=== PATIENT | female | born 1975 | race Caucasian/White ===

== ENCOUNTER 2018-07-28 10:51 | Emergency (ER) | payer BC ==
[2018-07-28] MEDS ORDERED: Sodium Chloride 0.9% 2.5 ML Syringe FLUSH PRN (11:07)
[2018-07-28] MEDS ORDERED: Sodium Chloride 0.9% 10 ML Syringe FLUSH PRN (11:07)
--- NOTE | 2018-07-28 11:28 | EDM.PDOC ---
ED HPI GENERAL MEDICAL PROBLEM - General Chief Complaint: Abdominal Pain Stated Complaint: ABD PAIN Time Seen by Provider: 07/28/18 11:23 Source of Information: Reports: Patient History Limitations: Reports: No Limitations - History of Present Illness INITIAL COMMENTS - FREE TEXT/NARRATIVE: HISTORY AND PHYSICAL: History of present illness: Patient is a 42-year-old female here with complaint of abdominal pain. She states she has a small umbilical hernia, she was "messing with it" this morning and states that since then she is having a severe pain in the area that radiates down her abdomen. She states right now lying down it is not as severe and she is just having a little bit of discomfort. She denies fevers, chills, nausea, vomiting, diarrhea, dysuria, hematuria. She states she had a normal non- bloody stool this morning. She reports history of stage 2 polycystic kidney disease. Denies back pain. Review of systems: As per history of present illness and below otherwise all systems reviewed and negative. Past medical history: As per history of present illness and as reviewed below otherwise noncontributory. Surgical history: As per history of present illness and as reviewed below otherwise noncontributory. Social history: No reported history of drug or alcohol abuse. Family history: As per history of present illness and as reviewed below otherwise noncontributory. Physical exam: General: Patient sitting comfortably in no acute distress and nontoxic appearing HEENT: Atraumatic, normocephalic, pupils reactive, negative for conjunctival pallor or scleral icterus, mucous membranes moist, throat clear, neck supple, nontender, trachea midline. No meningeal signs. Lungs: Clear to auscultation, breath sounds equal bilaterally, chest nontender. Heart: S1S2, regular, negative for clicks, rubs, or overt murmur. Abdomen: There is a small defect felt just above the umbilicus without any tenderness to palpation. Soft, nondistended. Negative for masses or hepatosplenomegaly. Negative for costovertebral tenderness. Pelvis: Stable nontender. Genitourinary: Deferred. Rectal: Deferred. Extremities: Atraumatic, negative for cords or calf pain. Neurovascular unremarkable. Neuro: Awake, alert, oriented. Cranial nerves II through XII unremarkable. Cerebellum unremarkable. Motor and sensory unremarkable throughout. Exam nonfocal. Notes: Patient reports feeling better and declined CT of the abdomen. Labs are unremarkable. Diagnostics: CBC, CMP, lipase, UA Patient declined CT Therapeutics: None Prescriptions: None Impression: Abdominal pain Plan: 1. Follow up with primary care provider 2. Return to ED as needed as discussed Definitive disposition and diagnosis as appropriate pending reevaluation and review of above. Middle Abdomen Pain Score (Numeric/FACES): 5 - Related Data Allergies Allergy/AdvReac Type Severity Reaction Status Date / Time cephalexin [Cephalexin] Allergy Rash Verified 07/28/18 11:09 codeine Allergy Rash Verified 07/28/18 11:09 Penicillins Allergy Rash Verified 07/28/18 11:09 Home Meds: Home Meds Lisinopril 40 mg PO DAILY 02/22/15 [History] Past Medical History - Past Health History Medical/Surgical History: Denies Medical/Surgical History Cardiovascular History: Reports: Hypertension Other Genitourinary History: polycystic kidney disease Social & Family History - Family History Family Medical History: Noncontributory - Tobacco Use Smoking Status *Q: Never Smoker - Recreational Drug Use Recreational Drug Use: No ED ROS GENERAL - Review of Systems Review Of Systems: ROS reveals no pertinent complaints other than HPI. ED EXAM, GI/ABD - Physical Exam Exam: See Below (see dictation) Course - Vital Signs Last Recorded V/S: Last Vital Signs Temp 97.5 F 07/28/18 11:07 Pulse 77 07/28/18 11:07 Resp 18 07/28/18 11:07 BP 113/73 07/28/18 11:07 Pulse Ox 97 07/28/18 11:07 - Orders/Labs/Meds Orders: Active Orders 24 hr Category Date Time Status Abdomen Pelvis wo Cont [CT] Stat Exams 07/28/18 12:17 Ordered Sodium Chloride 0.9% [Saline Flush] Med 07/28/18 11:07 Active 10 ml FLUSH ASDIRECTED PRN Sodium Chloride 0.9% [Saline Flush] Med 07/28/18 11:07 Active 2.5 ml FLUSH ASDIRECTED PRN Saline Lock Insert [OM.PC] Stat Oth 07/28/18 11:07 Ordered Medication Orders Sodium Chloride (Saline Flush) 10 ml FLUSH ASDIRECTED PRN PRN Reason: Keep Vein Open Sodium Chloride (Saline Flush) 2.5 ml FLUSH ASDIRECTED PRN PRN Reason: Keep Vein Open Labs: Laboratory Tests 07/28/18 07/28/18 07/28/18 Range/Units 11:19 11:19 11:19 WBC 7.82 (4.0-11.0) K/uL RBC 4.41 (4.30-5.90) M/uL Hgb 13.9 (12.0-16.0) g/dL Hct 41.7 (36.0-46.0) % MCV 94.6 (80.0-98.0) fL MCH 31.5 (27.0-32.0) pg MCHC 33.3 (31.0-37.0) g/dL RDW Std Deviation 42.9 (28.0-62.0) fl RDW Coeff of Brenda 12 (11.0-15.0) % Plt Count 192 (150-400) K/uL MPV 11.60 (7.40-12.00) fL Neut % (Auto) 75.7 (48.0-80.0) % Lymph % (Auto) 17.0 (16.0-40.0) % [place] % (Auto) 5.6 (0.0-15.0) % Eos % (Auto) 1.2 (0.0-7.0) % Baso % (Auto) 0.5 (0.0-1.5) % Neut # (Auto) 5.9 H (1.4-5.7) K/uL Lymph # (Auto) 1.3 (0.6-2.4) K/uL [place] # (Auto) 0.4 (0.0-0.8) K/uL Eos # (Auto) 0.1 (0.0-0.7) K/uL Baso # (Auto) 0.0 (0.0-0.1) K/uL Nucleated RBC % 0.0 /100WBC Nucleated RBCs # 0 K/uL Sodium 134 L (136-145) mmol/L Potassium 3.9 (3.5-5.1) mmol/L Chloride 102 (98-107) mmol/L Carbon Dioxide 24.5 (21.0-32.0) mmol/L BUN 17 (7.0-18.0) mg/dL Creatinine 1.1 H (0.6-1.0) mg/dL Est Cr Clr Drug Dosing 64.79 mL/min Estimated GFR (MDRD) 54.5 ml/min Glucose 102 (74-106) mg/dL Calcium 8.8 (8.5-10.1) mg/dL Total Bilirubin 0.5 (0.2-1.0) mg/dL AST 19 (15-37) IU/L ALT 14 (14-63) IU/L Alkaline Phosphatase 64 (46-116) U/L Total Protein 7.4 (6.4-8.2) g/dL Albumin 3.5 (3.4-5.0) g/dL Globulin 3.9 (2.6-4.0) g/dL Albumin/Globulin Ratio 0.9 (0.9-1.6) Lipase 271 (73-393) U/L Urine Color YELLOW Urine Appearance CLEAR Urine pH 6.0 (5.0-8.0) Ur Specific [place] 1.015 (1.001-1.035) Urine Protein NEGATIVE (NEGATIVE) mg/dL Urine Glucose (UA) NEGATIVE (NEGATIVE) mg/dL Urine Ketones NEGATIVE (NEGATIVE) mg/dL Urine Occult Blood TRACE-LYSED H (NEGATIVE) Urine Nitrite NEGATIVE (NEGATIVE) Urine Bilirubin NEGATIVE (NEGATIVE) Urine Urobilinogen 0.2 (<2.0) EU/dL Ur Leukocyte Esterase NEGATIVE (NEGATIVE) Urine RBC 0-1 (0-2/HPF) Urine WBC 0-1 (0-5/HPF) Ur Epithelial Cells FEW (NONE-FEW) Urine Bacteria FEW (NEGATIVE) Meds: Medications Generic Name Dose Route Start Last Admin Trade Name Freq PRN Reason Stop Dose Admin Sodium Chloride 10 ml 07/28/18 11:07 Saline Flush FLUSH ASDIRECTED PRN Keep Vein Open Sodium Chloride 2.5 ml 07/28/18 11:07 Saline Flush FLUSH ASDIRECTED PRN Keep Vein Open Departure - Departure Time of Disposition: 12:48 Disposition: Home, Self-Care 01 Condition: Good Clinical Impression: Abdominal pain Qualifiers: Abdominal location: periumbilical Qualified Code(s): R10.33 - Periumbilical pain - Discharge Information Referrals: Zane Nath MD [Primary Care Provider] - Forms: ED Department Discharge Additional Instructions: The following information is given to patients seen in the emergency department who are being discharged to home. This information is to outline your options for follow-up care. We provide all patients seen in our emergency department with a follow-up referral. The need for follow-up, as well as the timing and circumstances, are variable depending upon the specifics of your emergency department visit. If you don't have a primary care physician on staff, we will provide you with a referral. We always advise you to contact your personal physician following an emergency department visit to inform them of the circumstance of the visit and for follow-up with them and/or the need for any referrals to a consulting specialist. The emergency department will also refer you to a specialist when appropriate. This referral assures that you have the opportunity for follow-up care with a specialist. All of these measure are taken in an effort to provide you with optimal care, which includes your follow-up. Under all circumstances we always encourage you to contact your private physician who remains a resource for coordinating your care. When calling for follow-up care, please make the office aware that this follow-up is from your recent emergency room visit. If for any reason you are refused follow-up, please contact the [facility] Emergency Department at and asked to speak to the [place] [address] 1. Follow up with primary care provider 2. Return to ED as needed as discussed - My Orders Last 24 Hours: My Active Orders 07/28/18 11:07 Sodium Chloride 0.9% [Saline Flush] 10 ml FLUSH ASDIRECTED PRN Sodium Chloride 0.9% [Saline Flush] 2.5 ml FLUSH ASDIRECTED PRN Saline Lock Insert [OM.PC] Stat 07/28/18 12:17 Abdomen Pelvis wo Cont [CT] Stat - Assessment/Plan Last 24 Hours: My Active Orders 07/28/18 11:07 Sodium Chloride 0.9% [Saline Flush] 10 ml FLUSH ASDIRECTED PRN Sodium Chloride 0.9% [Saline Flush] 2.5 ml FLUSH ASDIRECTED PRN Saline Lock Insert [OM.PC] Stat 07/28/18 12:17 Abdomen Pelvis wo Cont [CT] Stat
[2018-07-28 14:54] VITALS: BP 133/89
== END 2018-07-28 13:00 | disposition home or self-care (01) ==
LOC: MW.ED 10:51
DX: R10.33 Periumbilical pain (principal); I10 Essential (primary) hypertension; Z88.1 Allergy status to other antibiotic agents; Z88.0 Allergy status to penicillin; Z88.5 Allergy status to narcotic agent; Z79.899 Other long term (current) drug therapy
CPT/HCPCS: 36415; 80053; 81001; 83690; 85025; 99283; 99284

== ENCOUNTER 2020-11-26 11:58 | Emergency (ER) | payer BC ==
--- NOTE | 2020-11-26 12:31 | EDM.PDOC ---
ED HPI GENERAL MEDICAL PROBLEM - General Chief Complaint: Abdominal Pain Stated Complaint: PAIN IN ABDOMIN Time Seen by Provider: 11/26/20 11:59 Source of Information: Reports: Patient History Limitations: Reports: No Limitations - History of Present Illness INITIAL COMMENTS - FREE TEXT/NARRATIVE: HISTORY AND PHYSICAL: History of present illness: Patient is a 45-year-old female who presents to the emergency room today with concern of umbilical hernia discomfort worsening today but has had issues with the umbilical hernia hurting off and on over the past several years. Patient states that she sees general surgeon, Dr. Ramos and was instructed to set up a surgery at any time. Patient states that she has been waiting to get surgery on it but now that she is having issues and discomfort realizes she needs to have surgery. Patient states that typically she is able to get the hernia to go in and out but states today she was not able to get up to go and so came to the emergency room. Patient denies any other symptoms or concerns. Patient denies fever, chills, chest pain, shortness of breath, or cough. Denies headache, neck stiff ness, change in vision, syncope, or near syncope. Denies nausea, vomiting, abdominal pain, diarrhea, constipation, or dysuria. Has not noted any blood in urine or stool. Patient has been eating and drinking appropriately. Review of systems: As per history of present illness and below otherwise all systems reviewed and negative. Past medical history: As per history of present illness and as reviewed below otherwise noncontribut ory. Surgical history: As per history of present illness and as reviewed below otherwise noncontributory. Social history: See social history for further information Family history: As per history of present illness and as reviewed below otherwise noncontributory. Physical exam: General: Patient is alert, oriented, and in no acute distress. Patient sitting comfortably on exam table. Vitals stable and reviewed by me. HEENT: Atraumatic, normocephalic, pupils equal and reactive bilaterally, negative for conjunctival pallor or scleral icterus, mucous membranes moist, TMs normal bilaterally, throat clear, neck supple, nontender, trachea midline. No drooling or trismus noted. No meningeal signs. No hot potato voice noted. Lungs: Clear to auscultation, breath sounds equal bilaterally, chest nontender. Heart: S1S2, regular rate and rhythm without overt murmur Abdomen: Patient does have an umbilical hernia which is approximately 3 cm x 3 cm which is easily reducible on exam and tender to palpation. Otherwise, soft, nondistended, nontender. Negative for masses or hepatosplenomegaly. Negative for costovertebral tenderness. Pelvis: Stable nontender. Genitourinary: Deferred. Rectal: Deferred. Skin: Intact, warm, dry. No lesions or rashes noted. Extremities: Atraumatic, negative for cords or calf pain. Neurovascular unremarkable. Neuro: Awake, alert, oriented. Cranial nerves II through XII unremarkable. Cerebellum unremarkable. Motor and sensory unremarkable throughout. Exam nonfocal. Notes: Patient is a 45-year-old female who presents emergency room today with concern of umbilical hernia pain and discomfort worsening today. Patient states that she has had issues with her umbilical hernia over several years and has seen Dr. Ramos, general surgery, but has been delaying getting operated on. Patient states that she has been having discomfort off-and-on of the hernia and it does pop in and out and she is able to get it to reduce. Patient states that today, she has not been able to get the bellybutton hernia to reduce and started having pain with associated nausea so came to the emergency room for further evaluation. Upon arrival to the ED, patient is vitally stable and well- appearing on exam. She does have an umbilical hernia on exam which is easily reducible on exam. She is able to sit up and stand without the umbilical hernia going back out. Strict return precautions thoroughly discussed with patient. Discussed importance for follow-up with a general surgeon. Voices understanding and is agreeable to plan of care. Denies any further questions or concerns at this time. Diagnostics: None Therapeutics: None Prescription: None Impression: Umbilical hernia discomfort, reducible Plan: 1. You can alternate ibuprofen and Tylenol as directed for pain and discomfort. 2. Follow-up with the general surgeon as discussed. Return to the ED as needed and as discussed. Definitive disposition and diagnosis as appropriate pending reevaluation and review of above. umbillical Pain Score (Numeric/FACES): 5 - Related Data Allergies Allergy/AdvReac Type Severity Reaction Status Date / Time cephalexin [Cephalexin] Allergy Rash Verified 11/26/20 12:05 codeine Allergy Rash Verified 11/26/20 12:05 Penicillins Allergy Rash Verified 11/26/20 12:05 Home Meds: Home Meds Lisinopril 40 mg PO DAILY 02/22/15 [History] Past Medical History - Past Health History Medical/Surgical History: Denies Medical/Surgical History HEENT History: Reports: None Cardiovascular History: Reports: Hypertension Respiratory History: Reports: None Gastrointestinal History: Reports: None Genitourinary History: Reports: Other (See Below) Other Genitourinary History: polycystic kidney disease [employer] History: Reports: None Musculoskeletal History: Reports: None Neurological History: Reports: None Psychiatric History: Reports: None Endocrine/Metabolic History: Reports: None Hematologic History: Reports: None Immunologic History: Reports: None Oncologic (Cancer) History: Reports: None Dermatologic History: Reports: None - Infectious Disease History Infectious Disease History: Reports: None - Past Surgical History Head Surgeries/Procedures: Reports: None HEENT Surgical History: Reports: None Cardiovascular Surgical History: Reports: None Respiratory Surgical History: Reports: None GI Surgical History: Reports: None Female Surgical History: Reports: None Endocrine Surgical History: Reports: None Neurological Surgical History: Reports: None Musculoskeletal Surgical History: Reports: None Oncologic Surgical History: Reports: None Dermatological Surgical History: Reports: None Social & Family History - Family History Family Medical History: No Pertinent Family History - Tobacco Use Tobacco Use Status *Q: Never Tobacco User Second Hand Smoke Exposure: No - Caffeine Use Caffeine Use: Reports: None - Recreational Drug Use Recreational Drug Use: No ED ROS GENERAL - Review of Systems Review Of Systems: Comprehensive ROS is negative, except as noted in HPI. ED EXAM, GENERAL - Physical Exam Exam: See Below (see dictation) Course - Vital Signs Last Recorded V/S: Last Vital Signs Temp 96.8 F L 11/26/20 12:06 Pulse 94 11/26/20 12:06 Resp 18 11/26/20 12:06 BP 140/95 H 11/26/20 12:06 Pulse Ox 98 11/26/20 12:06 Departure - Departure Time of Disposition: 12:26 Disposition: Home, Self-Care 01 Clinical Impression: Umbilical hernia Qualifiers: Obstruction and gangrene presence: without obstruction or gangrene Qualified Code(s): K42.9 - Umbilical hernia without obstruction or gangrene - Discharge Information Referrals: Lauri Lombardi MD [Primary Care Provider] - Additional Instructions: The following information is given to patients seen in the emergency department who are being discharged to home. This information is to outline your options for follow-up care. We provide all patients seen in our emergency department with a follow-up referral. The need for follow-up, as well as the timing and circumstances, are variable depending upon the specifics of your emergency department visit. If you don't have a primary care physician on staff, we will provide you with a referral. We always advise you to contact your personal physician following an emergency department visit to inform them of the circumstance of the visit and for follow-up with them and/or the need for any referrals to a consulting specialist. The emergency department will also refer you to a specialist when appropriate. This referral assures that you have the opportunity for follow-up care with a specialist. All of these measure are taken in an effort to provide you with optimal care, which includes your follow-up. Under all circumstances we always encourage you to contact your private physician who remains a resource for coordinating your care. When calling for follow-up care, please make the office aware that this follow-up is from your recent emergency room visit. If for any reason you are refused follow-up, please contact the [facility] Emergency Department at and asked to speak to the emergency department charge nurse. [facility] [address] [place], [place] [id number] [address] [address] [facility] - General Surgery Professional Building [address] [place] [address], [address] [place] [address] 1. You can alternate ibuprofen and Tylenol as directed for pain and discomfort. 2. Follow-up with a general surgeon as discussed. Return to the ED as needed and as discussed. Sepsis Event Note (ED) - Evaluation Sepsis Screening Result: No Definite Risk - Focused Exam Vital Signs: Vital Signs Temp Pulse Resp BP Pulse Ox 11/26/20 12:06 96.8 F L 94 18 140/95 H 98
[2020-11-26 15:13] VITALS: BP 131/87; PULSE 82
== END 2020-11-26 12:53 | disposition home or self-care (01) ==
LOC: MW.ED 11:58
DX: K42.9 Umbilical hernia without obstruction or gangrene (principal); I10 Essential (primary) hypertension; Z88.5 Allergy status to narcotic agent; Z88.1 Allergy status to other antibiotic agents; Z88.0 Allergy status to penicillin; Z79.899 Other long term (current) drug therapy
CPT/HCPCS: 99283

== ENCOUNTER 2020-11-28 11:18 | Day surgery (SDC) | payer BC ==
--- NOTE | 2020-11-28 09:59 | PCM.PREANE ---
Preanesthetic Assessment - Anesthesia/Transfusion/Family Hx Anesthesia History: No Prior Anesthesia Other Type of Anesthesia Reaction Comment: patient adopted, family hx unknown Transfusion History: No Prior Transfusion(s) - Review of Systems General: No Symptoms Pulmonary: No Symptoms Cardiovascular: No Symptoms Gastrointestinal: Abdominal Pain Neurological: No Symptoms - Physical Assessment NPO Status Date: 11/28/20 NPO Status Time: 00:00 Height: 5 ft 7 in Weight: 205 lb ASA Class: 2 Mental Status: Alert & Oriented x3 Airway Class: Mallampati = 2 Dentition: Reports: Normal Dentition Thyro-Mental Finger Breadths: 3 Mouth Opening Finger Breadths: 3 ROM/Head Extension: Full Lungs: Clear to Auscultation, Normal Respiratory Effort Cardiovascular: Regular Rate, Regular Rhythm - Allergies Allergies/Adverse Reactions: Allergies Allergy/AdvReac Type Severity Reaction Status Date / Time cephalexin [Cephalexin] Allergy Rash Verified 11/27/20 10:07 codeine Allergy Rash Verified 11/27/20 10:07 Penicillins Allergy Rash Verified 11/27/20 10:07 - Blood Blood Available: No - Anesthesia Plan Pre-Op Medication Ordered: Other (Scopolamine) - Acknowledgements Anesthesia Type Planned: General Anesthesia Pt an Appropriate Candidate for the Planned Anesthesia: Yes Alternatives and Risks of Anesthesia Discussed w Pt/Guardian: Yes Pt/Guardian Understands and Agrees with Anesthesia Plan: Yes PreAnesthesia Questionnaire - Past Health History Medical/Surgical History: Denies Medical/Surgical History HEENT History: Reports: Other (See Below) Other HEENT History: wears glasses/contacts Cardiovascular History: Reports: Hypertension Respiratory History: Reports: None Gastrointestinal History: Reports: None Genitourinary History: Reports: Other (See Below) Other Genitourinary History: polycystic kidney disease [employer] History: Reports: , Other (See Below) (Polycystic ovary) Musculoskeletal History: Reports: None Neurological History: Reports: None Psychiatric History: Reports: None Endocrine/Metabolic History: Reports: Obesity/BMI 30+ Hematologic History: Reports: None Immunologic History: Reports: None Oncologic (Cancer) History: Reports: None Dermatologic History: Reports: None - Infectious Disease History Infectious Disease History: Reports: None - Past Surgical History Head Surgeries/Procedures: Reports: None HEENT Surgical History: Reports: None Cardiovascular Surgical History: Reports: None Respiratory Surgical History: Reports: None GI Surgical History: Reports: None Female Surgical History: Reports: None Endocrine Surgical History: Reports: None Neurological Surgical History: Reports: None Musculoskeletal Surgical History: Reports: None Oncologic Surgical History: Reports: None Dermatological Surgical History: Reports: None - SUBSTANCE USE Tobacco Use Status *Q: Never Tobacco User Number of Drinks Per Day: 2 - HOME MEDS Home Medications: Home Meds Lisinopril 40 mg PO DAILY 02/22/15 [History] - CURRENT (IN HOUSE) MEDS Current Meds: Current Medications Albuterol (Albuterol 0.083% 2.5 Mg/3 Ml Neb Soln) 2.5 mg NEB ONETIME PRN PRN Reason: Wheezing Droperidol (Droperidol 5 Mg/2 Ml Sdv) 0.625 mg IVPUSH ONETIME PRN PRN Reason: Nausea/Vomiting Fentanyl (Fentanyl 100 Mcg/2 Ml Sdv) 50 mcg IVPUSH Q5M PRN PRN Reason: Pain (mild 1-3) Hydromorphone HCl (Hydromorphone 2 Mg/Ml Syringe) 1 mg IVPUSH Q10M PRN PRN Reason: Pain (moderate 4-6) Lactated Ringer's (Ringers, Lactated) 1,000 mls @ 125 mls/hr IV ASDIRECTED INOCENCIO Metoclopramide HCl (Metoclopramide 10 Mg/2 Ml Sdv) 10 mg IVPUSH ONETIME PRN PRN Reason: Nausea/Vomiting Morphine Sulfate (Morphine 2 Mg/Ml Syringe) 2 mg IVPUSH Q10M PRN PRN Reason: Pain (severe 7-10) Naloxone HCl (Naloxone 0.4 Mg/Ml Syringe) 0.1 mg IVPUSH ASDIRECTED PRN PRN Reason: Respiratory Depression Ondansetron HCl (Ondansetron 4 Mg/2 Ml Sdv) 4 mg IVPUSH ONETIME PRN PRN Reason: Nausea/Vomiting Sodium Chloride (Sodium Chloride 0.9% 10 Ml Sdv) 10 ml IV ASDIRECTED PRN PRN Reason: IV Use Sodium Chloride (Sodium Chloride 0.9% 10 Ml Syringe) 10 ml FLUSH ASDIRECTED PRN PRN Reason: Keep Vein Open Sodium Chloride (Sodium Chloride 0.9% 2.5 Ml Syringe) 2.5 ml FLUSH ASDIRECTED PRN PRN Reason: Keep Vein Open Discontinued Medications Clindamycin Phosphate 600 mg/ (Premix) 50 mls @ 100 mls/hr IV ONETIME ONE Stop: 11/28/20 06:29 Scopolamine (Scopolamine 1.5 Mg Transdermal Patch) Confirm Administered Dose 1.5 mg .ROUTE .[facility] ONE Stop: 11/28/20 09:48
[~2020-11-28 11:18] MED LIST: Albuterol 0.083% 2.5 MG/3 ML Neb Soln NEB PRN; Bupivacaine 0.5% 30 ML SDV ONE; Clindamycin Phosphate in D5W 600 MG in Premix Bag 1 BAG IV ONE; HYDROmorphone 2 MG/ML Syringe IVPUSH PRN; Lactated Ringers 1,000 ML IV SCH; Lidocaine 2% 5 ML SDV ONE; Metoclopramide 10 MG/2 ML SDV IVPUSH PRN; Morphine 2 MG/ML SYRINGE IVPUSH PRN; Naloxone 0.4 MG/ML Syringe IVPUSH PRN; Octyl 2-Cyanoacrylate 1 Tube ONE; Ondansetron 4 MG/2 ML SDV IVPUSH PRN; Ondansetron 4 MG/2 ML SDV ONE; Scopolamine 1.5 MG Transdermal Patch ONE; Sodium Chloride 0.9% 10 ML SDV IV PRN; Sodium Chloride 0.9% 10 ML Syringe FLUSH PRN; Sodium Chloride 0.9% 2.5 ML Syringe FLUSH PRN; fentaNYL 100 MCG/2 ML SDV IVPUSH PRN; propofoL 100 ML ONE
[2020-11-28] MEDS ORDERED: Dexmedetomidine 200 MCG/2 ML SDV ONE (11:43)
[2020-11-28] MEDS ORDERED: fentaNYL 100 MCG/2 ML SDV ONE (11:55)
[2020-11-28] MEDS ORDERED: Clindamycin Phosphate in D5W 50 ML ONE (11:56)
[2020-11-28] MEDS ORDERED: Dexamethasone 4 MG/ML 5 ML MDV ONE (12:10)
--- NOTE | 2020-11-28 12:39 | PCM.POSTAN ---
POST ANESTHESIA ASSESSMENT - MENTAL STATUS Mental Status: Alert, Oriented - VITAL SIGNS Vital Signs: Last Vital Signs Temp 99.0 F 11/28/20 12:32 Pulse 76 11/28/20 12:32 Resp 12 11/28/20 12:32 BP 100/55 L 11/28/20 12:32 Pulse Ox 96 11/28/20 12:32 - RESPIRATORY Respiratory Status: Respiratory Rate WNL, Airway Patent, O2 Saturation Stable - CARDIOVASCULAR CV Status: Pulse Rate WNL, Blood Pressure Stable - GASTROINTESTINAL GI Status: No Symptoms - POST OP HYDRATION Hydration Status: Adequate & Stable
--- NOTE | 2020-11-28 12:39 | PCM48HPAN ---
Post Anesthesia Note - EVALUATION WITHIN 48HRS OF ANESTHETIC Vital Signs in Normal Range: Yes Patient Participated in Evaluation: Yes Respiratory Function Stable: Yes Airway Patent: Yes Cardiovascular Function Stable: Yes Hydration Status Stable: Yes Pain Control Satisfactory: Yes Nausea and Vomiting Control Satisfactory: Yes Mental Status Recovered: Yes Vital Signs: Last Vital Signs Temp 99.0 F 11/28/20 12:32 Pulse 76 11/28/20 12:32 Resp 12 11/28/20 12:32 BP 100/55 L 11/28/20 12:32 Pulse Ox 96 11/28/20 12:32
--- NOTE | 2020-11-28 12:51 | PCM.OPNOTE ---
- General Post-Op/Procedure Note Date of Surgery/Procedure: 11/28/20 Operative Procedure(s): Umbilical hernia repair Findings: Umbilical hernia 8mm fascial defect Pre Op Diagnosis: Umbilical hernia Post-Op Diagnosis: same Anesthesia Technique: General LMA, Local Primary Surgeon: Cat Angel Condition: Good
[2020-11-28 14:14] VITALS: BP 109/72; PULSE 48
--- NOTE | 2020-11-28 15:33 | OR ---
SURGEON: CAT ANGEL MD DATE OF PROCEDURE: 11/28/2020 PREOPERATIVE DIAGNOSIS: Umbilical hernia. POSTOPERATIVE DIAGNOSIS: Umbilical hernia. PROCEDURE PERFORMED: Umbilical hernia repair. PRIMARY SURGEON: Cat Angel MD ANESTHESIA: General LMA, local. FLUIDS: 1500 mL of crystalloid. ESTIMATED BLOOD LOSS: 5 mL. FINDINGS: 8 mm fascial defect just to the left of the umbilical stalk. Hernia sac contained preperitoneal fat. COMPLICATIONS: None. INDICATIONS: The patient is a 45-year-old female who for the past five years has noticed an umbilical hernia. In the last several months, it has become more symptomatic. Two days ago, she presented to the emergency room with a nonreducible hernia. They were able to reduce it in the emergency room, however, the patient would now like to have it repaired. I explained the procedure, expected perioperative course, and the risks. She verbalized understanding and wishes to proceed. PROCEDURE IN DETAIL: The patient was brought in to the OR and placed on the OR table in supine position. A time-out was completed verifying the patient's name, age, date of , allergies, and procedure to be performed. General LMA anesthesia was induced. The abdomen was prepped and draped in usual standard fashion. The patient had a small reducible hernia just left and inferior to the umbilical stalk. I anesthetized around the umbilicus with 0.5% Marcaine plain. A 15- blade was then used to make an incision from the 3 o'clock to the 6 o'clock position along the inferior umbilical fold. Cautery was used to dissect down to the level of subcutaneous fat. Upon entering this area, I noted that I had gotten into the hernia sac. A small amount of fat was noted. I then grasped the hernia sac with a hemostat and dissected around it using both blunt dissection and sharp dissection with the Metzenbaum scissors. I cleared away the hernia sac from the surrounding subcutaneous fat down to the level of the fascia. The hernia sac was wispy and thin. I was able to excise this away from the fascia. It was passed off the field. The hernia sac appeared to contain preperitoneal fat. I was able to easily reduce this back into the abdomen. Then, using a hemostat, I gently cleared away the underlying fascia to allow placement of my sutures. The fascial defect measured 8 mm in size. Given how small it was, the decision was made to repair this primarily. I closed the incision with interrupted 0 Ethibond sutures. Hemostasis was achieved in the wound using electrocautery. I then used interrupted 3-0 Vicryl sutures to bring together the subcutaneous fat. The skin was then closed with a running 4-0 Monocryl suture. Dermabond and sterile dressings were applied. The patient tolerated the procedure well. All counts were complete and correct at the end of the case. The patient was extubated and taken to PACU in stable condition. KANIKA DAMON /[id number]
== END 2020-11-28 13:57 | disposition home or self-care (01) ==
LOC: MW.SDS 11:18
PROVIDERS: ATTEND Surgery
DX: K42.9 Umbilical hernia without obstruction or gangrene (principal); I10 Essential (primary) hypertension; E66.9 Obesity, unspecified; Z88.8 Allergy status to other drugs, medicaments and biological substances; Z88.0 Allergy status to penicillin; Z88.2 Allergy status to sulfonamides; Z79.899 Other long term (current) drug therapy; Z88.5 Allergy status to narcotic agent; Z68.32 Body mass index [BMI] 32.0-32.9, adult
CPT/HCPCS: 49585; 81025; A9270; J1100; J2405; J2704; J3010; J3490

== ENCOUNTER 2021-01-03 07:00 | Day surgery (SDC) | payer BC ==
[~2021-01-03 07:00] MED LIST changes: -Albuterol 0.083% 2.5 MG/3 ML Neb Soln NEB PRN; -Bupivacaine 0.5% 30 ML SDV ONE; +Clindamycin Phosphate in D5W 50 ML ONE; -HYDROmorphone 2 MG/ML Syringe IVPUSH PRN; -Lidocaine 2% 5 ML SDV ONE; -Metoclopramide 10 MG/2 ML SDV IVPUSH PRN; -Morphine 2 MG/ML SYRINGE IVPUSH PRN; -Naloxone 0.4 MG/ML Syringe IVPUSH PRN; -Octyl 2-Cyanoacrylate 1 Tube ONE; -Ondansetron 4 MG/2 ML SDV IVPUSH PRN; -Ondansetron 4 MG/2 ML SDV ONE; -Scopolamine 1.5 MG Transdermal Patch ONE; -fentaNYL 100 MCG/2 ML SDV IVPUSH PRN; -propofoL 100 ML ONE
[2021-01-03] MEDS ORDERED: Scopolamine 1.5 MG Transdermal Patch ONE (07:04)
[2021-01-03] MEDS ORDERED: Midazolam 1 MG/ML 2 ML SDV ONE (07:06)
[2021-01-03] MEDS ORDERED: Albuterol 0.083% 2.5 MG/3 ML Neb Soln NEB PRN (07:19)
[2021-01-03] MEDS ORDERED: fentaNYL 100 MCG/2 ML SDV IVPUSH PRN (07:19)
[2021-01-03] MEDS ORDERED: Naloxone 0.4 MG/ML Syringe IVPUSH PRN (07:19)
[2021-01-03] MEDS ORDERED: Ondansetron 4 MG/2 ML SDV IVPUSH PRN (07:19)
[2021-01-03] MEDS ORDERED: Metoclopramide 10 MG/2 ML SDV IVPUSH PRN (07:19)
[2021-01-03] MEDS ORDERED: Morphine 10 MG/ML Syringe IVPUSH PRN (07:19)
[2021-01-03] MEDS ORDERED: HYDROmorphone 1 MG/ML Syringe IVPUSH PRN (07:19)
--- NOTE | 2021-01-03 07:33 | PCM.PREANE ---
Preanesthetic Assessment - Anesthesia/Transfusion/Family Hx Anesthesia History: Prior Anesthesia Without Reaction Other Type of Anesthesia Reaction Comment: pt adopted, family hx unknown Transfusion History: No Prior Transfusion(s) - Review of Systems General: No Symptoms Pulmonary: No Symptoms Cardiovascular: No Symptoms Gastrointestinal: Abdominal Pain Neurological: No Symptoms Other: Reports: None - Physical Assessment NPO Status Date: 01/03/21 NPO Status Time: 00:00 Vital Signs: Last Vital Signs Temp 97.3 F 01/03/21 07:19 Pulse 76 01/03/21 07:19 Resp 16 01/03/21 07:19 BP 129/86 01/03/21 07:19 Pulse Ox 100 01/03/21 07:19 Height: 5 ft 7 in Weight: 201 lb ASA Class: 2 Mental Status: Alert & Oriented x3 Airway Class: Mallampati = 2 Dentition: Reports: Normal Dentition Thyro-Mental Finger Breadths: 3 Mouth Opening Finger Breadths: 3 ROM/Head Extension: Full Lungs: Clear to Auscultation, Normal Respiratory Effort Cardiovascular: Regular Rate, Regular Rhythm - Allergies Allergies/Adverse Reactions: Allergies Allergy/AdvReac Type Severity Reaction Status Date / Time cephalexin [Cephalexin] Allergy Rash Verified 01/02/21 08:03 codeine Allergy Rash Verified 01/02/21 08:03 Penicillins Allergy Rash Verified 01/02/21 08:03 - Acknowledgements Anesthesia Type Planned: General Anesthesia Pt an Appropriate Candidate for the Planned Anesthesia: Yes Alternatives and Risks of Anesthesia Discussed w Pt/Guardian: Yes Pt/Guardian Understands and Agrees with Anesthesia Plan: Yes PreAnesthesia Questionnaire - Past Health History Medical/Surgical History: Denies Medical/Surgical History HEENT History: Reports: Other (See Below) Other HEENT History: wears glasses/contacts Cardiovascular History: Reports: Hypertension Respiratory History: Reports: None Gastrointestinal History: Reports: None Genitourinary History: Reports: Other (See Below) Other Genitourinary History: polycystic kidney disease LINE [employer]TE[employer]NCE History: Reports: Musculoskeletal History: Reports: None Neurological History: Reports: None Psychiatric History: Reports: None Endocrine/Metabolic History: Reports: Obesity/BMI 30+ Hematologic History: Reports: None Immunologic History: Reports: None Oncologic (Cancer) History: Reports: None Dermatologic History: Reports: None - Infectious Disease History Infectious Disease History: Reports: None - Past Surgical History Head Surgeries/Procedures: Reports: None HEENT Surgical History: Reports: None Cardiovascular Surgical History: Reports: None Respiratory Surgical History: Reports: None GI Surgical History: Reports: Hernia, Abdominal Other GI Surgeries/Procedures: umbilical hernia repair on 11/28/20 Female Surgical History: Reports: None Endocrine Surgical History: Reports: None Neurological Surgical History: Reports: None Musculoskeletal Surgical History: Reports: None Oncologic Surgical History: Reports: None Dermatological Surgical History: Reports: None - SUBSTANCE USE Tobacco Use Status *Q: Never Tobacco User Number of Drinks Per Day: 2 Recreational Drug Use History: No - HOME MEDS Home Medications: Home Meds Lisinopril 40 mg PO DAILY 02/22/15 [History] - CURRENT (IN HOUSE) MEDS Current Meds: Current Medications Albuterol (Albuterol 0.083% 2.5 Mg/3 Ml Neb Soln) 2.5 mg NEB ONETIME PRN PRN Reason: Wheezing Droperidol (Droperidol 5 Mg/2 Ml Sdv) 0.625 mg IVPUSH ONETIME PRN PRN Reason: Nausea/Vomiting Fentanyl (Fentanyl 100 Mcg/2 Ml Sdv) 50 mcg IVPUSH Q5M PRN PRN Reason: Pain (mild 1-3) Hydromorphone HCl (Hydromorphone 1 Mg/Ml Syringe) 1 mg IVPUSH Q10M PRN PRN Reason: Pain (moderate 4-6) Lactated Ringer's (Ringers, Lactated) 1,000 mls @ 125 mls/hr IV ASDIRECTED INOCENCIO Last Admin: 01/03/21 07:21 Dose: 125 mls/hr Documented by: Metoclopramide HCl (Metoclopramide 10 Mg/2 Ml Sdv) 10 mg IVPUSH ONETIME PRN PRN Reason: Nausea/Vomiting Morphine Sulfate (Morphine 10 Mg/Ml Syringe) 2 mg IVPUSH Q10M PRN PRN Reason: Pain (severe 7-10) Naloxone HCl (Naloxone 0.4 Mg/Ml Syringe) 0.1 mg IVPUSH ASDIRECTED PRN PRN Reason: Respiratory Depression Ondansetron HCl (Ondansetron 4 Mg/2 Ml Sdv) 4 mg IVPUSH ONETIME PRN PRN Reason: Nausea/Vomiting Sodium Chloride (Sodium Chloride 0.9% 10 Ml Sdv) 10 ml IV ASDIRECTED PRN PRN Reason: IV Use Sodium Chloride (Sodium Chloride 0.9% 10 Ml Syringe) 10 ml FLUSH ASDIRECTED PRN PRN Reason: Keep Vein Open Sodium Chloride (Sodium Chloride 0.9% 2.5 Ml Syringe) 2.5 ml FLUSH ASDIRECTED PRN PRN Reason: Keep Vein Open Discontinued Medications Clindamycin Phosphate 600 mg/ (Premix) 50 mls @ 100 mls/hr IV ONETIME ONE Stop: 01/02/21 09:03 Last Admin: 01/03/21 07:31 Dose: 100 mls/hr Documented by: Clindamycin Phosphate (Cleocin In D5w 600 Mg/50 Ml) Confirm Administered Dose 50 mls @ as directed .ROUTE .STK-MED ONE Stop: 01/03/21 06:12 Midazolam HCl (Midazolam 1 Mg/Ml 2 Ml Sdv) Confirm Administered Dose 2 mg .ROUTE .STK-MED ONE Stop: 01/03/21 07:07 Scopolamine (Scopolamine 1.5 Mg Transdermal Patch) Confirm Administered Dose 1.5 mg .ROUTE .STK-MED ONE Stop: 01/03/21 07:05
[2021-01-03] MEDS ORDERED: Bupivacaine 0.5% 30 ML SDV ONE ×2 (07:52→08:16)
[2021-01-03] MEDS ORDERED: Bupivacaine 25%/EPINEPHrine/PF 30 ML ONE (07:52)
[2021-01-03] MEDS ORDERED: Ondansetron 4 MG/2 ML SDV ONE (08:04)
[2021-01-03] MEDS ORDERED: Sugammadex Sodium 200 MG/2 ML VIAL ONE (08:04)
[2021-01-03] MEDS ORDERED: Rocuronium Bromide 50 MG/5 ML Syringe ONE (08:04)
[2021-01-03] MEDS ORDERED: Lidocaine 2% 5 ML SDV ONE (08:04)
[2021-01-03] MEDS ORDERED: Dexamethasone 4 MG/ML 5 ML MDV ONE (08:04)
[2021-01-03] MEDS ORDERED: Propofol 200 MG/20 ML SDV ONE (08:04)
[2021-01-03] MEDS ORDERED: fentaNYL 100 MCG/2 ML SDV ONE (08:05)
[2021-01-03] MEDS ORDERED: Octyl 2-Cyanoacrylate 1 Tube ONE (08:52)
[2021-01-03] MEDS ORDERED: Ketorolac 30 MG/ML SDV ONE (09:13)
--- NOTE | 2021-01-03 09:27 | PCM.OPNOTE ---
- General Post-Op/Procedure Note Date of Surgery/Procedure: 01/03/21 Operative Procedure(s): Ventral hernia repair Findings: supraumbilical hernia defect measuring 1 cm in size Pre Op Diagnosis: Ventral hernia Post-Op Diagnosis: same Anesthesia Technique: General ET Tube Primary Surgeon: Cat Angel Fluid Replacement, Intraop: 800 EBL in mLs: 3 Condition: Good
--- NOTE | 2021-01-03 09:36 | PCM48HPAN ---
Post Anesthesia Note - EVALUATION WITHIN 48HRS OF ANESTHETIC Vital Signs in Normal Range: Yes Patient Participated in Evaluation: Yes Respiratory Function Stable: Yes Airway Patent: Yes Cardiovascular Function Stable: Yes Hydration Status Stable: Yes Pain Control Satisfactory: Yes Nausea and Vomiting Control Satisfactory: Yes Mental Status Recovered: Yes Vital Signs: Last Vital Signs Temp 97.3 F 01/03/21 07:19 Pulse 76 01/03/21 07:19 Resp 16 01/03/21 07:19 BP 129/86 01/03/21 07:19 Pulse Ox 100 01/03/21 07:19
--- NOTE | 2021-01-03 09:36 | PCM.POSTAN ---
POST ANESTHESIA ASSESSMENT - MENTAL STATUS Mental Status: Alert, Oriented - VITAL SIGNS Vital Signs: Last Vital Signs Temp 97.3 F 01/03/21 07:19 Pulse 76 01/03/21 07:19 Resp 16 01/03/21 07:19 BP 129/86 01/03/21 07:19 Pulse Ox 100 01/03/21 07:19 - RESPIRATORY Respiratory Status: Respiratory Rate WNL, Airway Patent, O2 Saturation Stable - CARDIOVASCULAR CV Status: Pulse Rate WNL, Blood Pressure Stable - GASTROINTESTINAL GI Status: No Symptoms - POST OP HYDRATION Hydration Status: Adequate & Stable
[2021-01-03 11:16] VITALS: BP 125/77; PULSE 77
--- NOTE | 2021-01-03 16:56 | OR ---
SURGEON: CAT ANGEL MD DATE OF PROCEDURE: 01/03/2021 PREOPERATIVE DIAGNOSIS: Ventral hernia. POSTOPERATIVE DIAGNOSIS: Ventral hernia. PROCEDURE PERFORMED: Ventral hernia repair. PRIMARY SURGEON: Cat Angel MD ANESTHESIA: General endotracheal anesthesia. FLUIDS: 800 mL of crystalloid. ESTIMATED BLOOD LOSS: 3 mL. FINDINGS: 1 cm defect at the supraumbilical midline. Hernia sac containing intraabdominal contents. COMPLICATIONS: None. INDICATIONS: The patient is a 45-year-old female who presented 2 days ago with an incarcerated supraumbilical hernia. She was able to get this to reduce; however, a CT scan showed that she had had a loop a small bowel previously in the hernia sac. The decision was made to repair this to prevent any further incarceration and/or strangulation. I explained the procedure, expected perioperative course, and risks. She verbalized understanding and wishes to proceed. PROCEDURE IN DETAIL: The patient was brought into the OR and placed on the OR table in supine position. A time-out was completed verifying the patient's name, age, date of , allergies, and procedure to be performed. General endotracheal anesthesia was induced. Our anesthesiologist performed a TAP block on either side of the rectus sheath along the midline for pain control. The abdomen was then prepped and draped in usual standard fashion. I anesthetized the supraumbilical midline with 0.5% Marcaine plain. An 11 blade was used to make an incision along the supraumbilical midline and carried laterally around the left supraumbilical fold. Electrocautery was used to dissect down to the level of the fat. Once I reached the subcutaneous fat layer, I then put my cautery away and began blunt dissection in the surrounding tissues. The patient was noted to have a hernia sac along the supraumbilical midline. Using a combination of blunt dissection with a hemostat and sharp dissection with Metzenbaum scissors, I cleared away the hernia sac from the surrounding structures down to the level of the fascia. The fascial opening appeared to be quite small. Using a hemostat, I cleared away the hernia sac from the surrounding fascia. Using Metzenbaum scissors, I made a small 1 mm to 2 mm cut in the fascia to allow the hernia sac to be reduced back into the abdomen. It reduced without difficulty. The hernia sac was not entered during the case. Using a hemostat, I then swept away any adhesions of the hernia sac to the underlying fascia. Once this was all cleared away, I measured my hernia defect. It measured 1 cm in size. The decision was made to close this primarily with nonabsorbable suture. I closed the opening horizontally using interrupted 0 Ethibond sutures placed 2 mm to 3 mm apart. These were then tied, and a Valsalva maneuver was performed. The repair remained intact. I then irrigated the wound with normal saline, which was suctioned out. The wound appeared hemostatic. I closed the subcutaneous fat layer with interrupted 3-0 Vicryl from deep to superficial. I then closed the skin with a running 4-0 Monocryl suture. Steri-Strips and sterile dressing were applied. The patient tolerated the procedure well, was extubated, and taken to PACU in stable condition. All counts were complete and correct at the end of the case. KANIKA / MARISOL /[id number]
== END 2021-01-03 11:12 | disposition home or self-care (01) ==
LOC: MW.SDS 07:00
PROVIDERS: ATTEND Surgery
DX: K43.9 Ventral hernia without obstruction or gangrene (principal); I10 Essential (primary) hypertension; Z88.0 Allergy status to penicillin; Z88.2 Allergy status to sulfonamides; Z79.899 Other long term (current) drug therapy; Z98.890 Other specified postprocedural states
CPT/HCPCS: 49560; 81025; J0131; J1100; J1885; J2405; J2704; J3010; J3490; J7120; 00790; A9270-GY

== ENCOUNTER 2021-09-04 08:10 | Day surgery (SDC) | payer BC ==
[~2021-09-04 08:10] MED LIST changes: -Clindamycin Phosphate in D5W 50 ML ONE; -Clindamycin Phosphate in D5W 600 MG in Premix Bag 1 BAG IV ONE; -Sodium Chloride 0.9% 10 ML SDV IV PRN; +Sodium Chloride 0.9% 20 ML SDV IV PRN
[2021-09-04] MEDS ORDERED: Propofol 200 MG/20 ML SDV ONE (08:33)
[2021-09-04] MEDS ORDERED: fentaNYL 100 MCG/2 ML SDV ONE (09:01)
[2021-09-04 10:30] VITALS: BP 103/69; PULSE 55
== END 2021-09-04 10:00 | disposition home or self-care (01) ==
LOC: MW.SDS 08:10
PROVIDERS: ATTEND Surgery
DX: Z12.11 Encounter for screening for malignant neoplasm of colon (principal); K63.5 Polyp of colon; I10 Essential (primary) hypertension; E66.9 Obesity, unspecified; Z88.2 Allergy status to sulfonamides; Z88.0 Allergy status to penicillin; Z88.1 Allergy status to other antibiotic agents; Z98.890 Other specified postprocedural states; Z68.32 Body mass index [BMI] 32.0-32.9, adult; Z79.899 Other long term (current) drug therapy
CPT/HCPCS: 00812; 81025; J2704; J3010; J7120